=== PATIENT | female | born 1990 | race Caucasian/White ===

== ENCOUNTER 2021-04-16 09:31 | Inpatient (IN) ==
[2021-04-16] MEDS ORDERED: OXYTOCIN 30 UNITS/500 ML BAG IV PRN ×2 (11:10→21:02)
[2021-04-16] MEDS ORDERED: fentaNYL citrate 100 MCG/2 ML VIAL ONE (11:12)
[2021-04-16] MEDS ORDERED: ePHEDrine sulfate 50 MG/ML AMP ONE (11:12)
[2021-04-16] MEDS ORDERED: BUPIVACAINE 0.25% 30 ML VIAL ONE (11:12)
[2021-04-16] MEDS ORDERED: SODIUM CHLORIDE 0.9% INJ 10 ML VIAL ONE (11:12)
[2021-04-16] MEDS ORDERED: fentaNYL 2MCG/ML ROPIVACAINE 1.25MG/ML 100 ML BAG EPI ONE (11:13)
--- NOTE | 2021-04-16 11:20 | History & Physical Report ---
Date of Service April 16, 2021 Assessment & Plan (1) : Plan: 30 y/o at 38 3/7 wga presenting in labor BP elevated likely due to significant pain, will recheck and order labs if persistently elevated Fetus cat 1 Labor - good progression over 1hr, will admit and recheck after more comfortable w/ epidural GBS neg desires epidural History of Present Illness Chief Complaint: Labor Primary Care Provider: Brenton Mathew, III, [employer] 30 y/o at 38 3/7 wga presents in labor. Has had ctx on and off since yesterday, overnight became more regular q5-8 and currently q3-5 since 7am. +FM and bloody mucous discharge, no LOF. Initial check was 3cm, progressed to 4 after 1hr and admitted PNI: None Past health worker HX: G1 2019 SAB G2 current Menarche 14, q28-30d denies hx abnl pap, 08/2020 neg cotest denies hx STIs Allergies Allergy/AdvReac Type Severity Reaction Status Date / Time No Known Allergies Allergy Verified 04/15/21 08:55 Home Medications Medication Instructions Recorded Confirmed Type prenat.vits,sumeet,jwn-zdyf-famvk 1 tab PO DAILY 04/17/20 04/16/21 History Patient History Medical History History of chicken pox Surgical History S/P knee surgery S/P wisdom tooth extraction Family History Mother Hypertension Sarcoidosis Hypercholesterolemia Father Hypertension Diabetes type 2, uncontrolled Hypercholesterolemia Grandmother (Maternal) Breast cancer Denies family history of Ovarian cancer Prostate cancer Myocardial infarction Colorectal cancer Uterine cancer Social History Smoking Status: Never smoker Second Hand Exposure: No; Hx Alcohol Use: No Hx Substance Use: No Preferred Language: Egyptian Communication Ability: Effective Visual Impairment: No Limitations Hearing Ability: Normal Beliefs That Will Affect Care: None marital status: marital status details: Ceasar Burgos (30) [phone] Current Living Situation: Spouse Current Living Situation Comment: Lives with spouse, 1 dog. current occupational status: employed current occupation: [employer] Other Information That Helps Us Care for You: No Feels Safe at Home: Yes Safety Concerns: Feels Safe At This Time Childhood Exposure to Second-Hand Smoke: No Dental Care, Regularly: Yes Physical Activity Frequency: 5-6 Times per Week Seatbelt Use: always Sunscreen Use: Yes Assistive Devices: None Physical Exam Constitutional: WD/WN, vitals as above Respiratory: normal respiratory effort; no respiratory distress and no labored breathing Genitourinary: OB Exam Abdomen: + vertex and + estimated weight (7) Manual OB Exam: + cervical dilation 4 cm, + cervical effacement 90% and + station -1 OB Exam Monitor Tracing: + external FHT monitor used, + external uterine monitor used (q5) and + category I (135/mod/+accel/-decel) Results & Data ([facility]) Vital Signs (Past 12 Hours) Vital Signs Temp Pulse Resp BP 04/16/21 09:42 97.9 F 65 20 155/80 H 04/16/21 09:38 65 155/80 H Laboratory Results OB Labs: Blood Type O Positive 09/17/20 Antibody Screen NEGATIVE 09/17/20 Hemoglobin 12.6 g/dL (12.0-16.0) 02/05/21 Hematocrit 38.4 % (37-47) 02/05/21 Mean Corpuscular Volume 88.6 fL (80-100) 09/17/20 Platelet Count 222 K/uL (130-400) 09/17/20 Rubella IgG Antibody Immune (Immune) 09/17/20 Rapid Plasma Reagin Nonreactive (Nonreactive) 09/17/20 Hepatitis B Surface Antigen Neg (Neg) 09/17/20 HIV (1&2) Ab and P24 Ag, 4th Gener Neg (Neg) 09/17/20 Glucose 1 Hour 50 gm Load 170 mg/dl (70-130) H 02/05/21 Maternal Serum Alpha Fetoprotein 32.2 ng/mL 11/13/20 OB Optional Labs: Chlamydia trachomatis RNA NOT DETECTED (NOT DETECTED) 09/17/20 Neisseria gonorrhoeae RNA NOT DETECTED (NOT DETECTED) 09/17/20 Alpha Fetoprotein Triple Screen SEE NOTE 11/13/20 Labs Reviewed: cfdna neg cf/sma neg afp neg--akh gbs neg Diagnostic Findings post plac Coding Level of Care Code None Diagnoses Z34.90
[2021-04-16] MEDS: LACTATED RINGER'S 1,000 ML IV PRN ×3 (11:32→21:29)
--- NOTE | 2021-04-16 11:56 | Anesthesiology Consultation ---
Date of Service April 16, 2021 Assessment & Plan (1) Encounter for pre-operative examination: Chart Review Chart Review: Acceptable Risk for Labor Epidural Consults Requested none ASA ASA2 Proposed Anesthesia Anesthesia Type: Labor Epidural Risk / Benefits Reviewed With: PT / POA / Parent / Guardian, Accepts Plan and Informed Consent Obtained History Height/Weight Height: 5 ft 5 in Weight: 75.75 kg Allergies Allergy/AdvReac Type Severity Reaction Status Date / Time No Known Allergies Allergy Verified 04/15/21 08:55 Medications Home Medications Medication Instructions Recorded Confirmed Last Taken prenat.vits,sumeet,tyu-qhmv-epjbi 1 tab PO DAILY 04/17/20 04/16/21 Unknown Active Medications Generic Name Dose Route Start Last Admin Trade Name Freq PRN Reason Stop Dose Admin Lactated Ringer's 1,000 mls @ 125 mls/hr 04/16/21 11:10 04/16/21 11:32 Lr IV 04/18/21 11:09 999 mls/hr .Q8H PRN Administration L&D Protocol Protocol Past Medical History Medical History History of chicken pox Exercise / Class Metabolic Activity II 4-5 Yardwork/Stairs/Walk up hill Past Family History Family History Mother Hypertension Sarcoidosis Hypercholesterolemia Father Hypertension Diabetes type 2, uncontrolled Hypercholesterolemia Grandmother (Maternal) Breast cancer Denies family history of Ovarian cancer Prostate cancer Myocardial infarction Colorectal cancer Uterine cancer Past Surgical History Surgical History S/P knee surgery S/P wisdom tooth extraction Past Anesthesia History No Hx of Anesthesia Complications and No Family Hx of Anesthesia Complications History of PONV No Hx of PONV and No Hx of Motion Sickness Social History Smoking Status: Never smoker Hx Alcohol Use: No Hx Substance Use: No substance use type: does not use Physical Exam Vital Signs Last Vital Signs Temp 97.9 F 04/16/21 09:42 Pulse 59 L 04/16/21 11:49 Resp 20 04/16/21 09:42 BP 155/80 H 04/16/21 09:42 Pulse Ox 100 04/16/21 11:49 ENMT Mouth: no dentition abnormality Thyromental Distance: > or= 3.5 Finger Breadths Mallampati Class: II Neck normal visual inspection Respiratory normal respiratory effort Auscultation: lungs clear to auscultation bilaterally Cardiovascular Rate/Rhythm: regular rate and regular rhythm
[2021-04-16 12:11] LABS: Hematocrit (blood only) 41.5 % (37-47); Hemoglobin 14.2 g/dL (12.0-16.0); Mean Corpuscular Hemoglobin 30.5 pg (25-34); Mean Corpuscular Hgb Conc 34.2 g/dL (32-36); Mean Corpuscular Volume 89.2 fL (80-100); Mean Platelet Volume 12.5 fL (7.4-10.4); Platelet Count 211 K/uL (130-400); RDW Standard Deviation 41.8 fL (36.4-46.3); Red Blood Count 4.65 M/uL (4.2-5.4); White Blood Count 14.13 K/uL (4.8-10.8)
[2021-04-16] MEDS ORDERED: diphenhydrAMINE 50 MG/ML VIAL IV PRN (12:18)
[2021-04-16] MEDS ORDERED: ePHEDrine sulfate 50 MG/ML AMP IV PRN (12:18)
[2021-04-16] MEDS ORDERED: NALOXONE HCL 0.4 MG/1 ML VIAL/CARP IV PRN (12:18)
[2021-04-16] MEDS ORDERED: NALBUPHINE HCL INJ 10 MG/ML AMP IV PRN (12:18)
[2021-04-16] MEDS ORDERED: fentaNYL 2MCG/ML ROPIVACAINE 1.25MG/ML 100 ML BAG EPI PRN (12:18)
[2021-04-16] MEDS ORDERED: ONDANSETRON INJ 2 MG/ML 2 ML VIAL IV PRN (12:18)
[2021-04-16] MEDS ORDERED: NALOXONE HCL 1 MG in SODIUM CHLORIDE 0.9% 1000ML 1,000 ML IV PRN (12:18)
--- NOTE | 2021-04-16 13:39 | Labor Progress Brief Note ---
Date of Service April 16, 2021 Subjective Comfortable w/ epidural Assessment & Plan (1) : Plan: 30 y/o at 38 3/7 wga presenting in labor BP normalized Fetus cat 1 Labor - continuing to progress, appears to have srom/leaked with forebag noted so ruptured GBS neg Epidural in place Admission and Anticipated Discharge Date Admission Date: April 16, 2021 Physical Exam Genitourinary: Manual OB Exam: + cervical dilation 5 cm, + cervical effacement 90%, + station -1 and + amniotic fluid (suspect srom as appears to have fluid on perineum, forebag noted and ruptur) OB Exam Monitor Tracing: + external FHT monitor used, + external uterine monitor used (q5) and + category I (125-130/mod/+accel/-decel) Results & Data ([facility]) Vital Signs (Past 12 Hours) Vital Signs Temp Pulse Resp BP Pulse Ox 04/16/21 13:34 104 H 100 04/16/21 13:30 104 H 128/77 04/16/21 13:29 89 100 04/16/21 13:24 106 H 100 04/16/21 13:19 82 100 04/16/21 13:16 87 121/69 04/16/21 13:14 74 100 04/16/21 13:09 75 100 04/16/21 13:04 73 100 04/16/21 13:00 88 126/80 04/16/21 12:59 89 100 04/16/21 12:54 72 100 04/16/21 12:49 80 100 04/16/21 12:46 88 128/75 04/16/21 12:44 87 100 04/16/21 12:39 96 H 100 04/16/21 12:34 93 H 100 04/16/21 12:29 93 H 130/70 99 04/16/21 12:24 83 122/66 100 04/16/21 12:22 71 127/67 04/16/21 12:20 77 127/66 04/16/21 12:19 71 100 04/16/21 12:18 65 128/67 04/16/21 12:16 74 137/71 04/16/21 12:14 60 149/84 H 100 04/16/21 12:09 53 L 100 04/16/21 12:04 64 100 04/16/21 11:59 65 100 04/16/21 11:54 68 100 04/16/21 11:49 59 L 100 04/16/21 09:42 97.9 F 65 20 155/80 H 04/16/21 09:38 97.9 F 65 155/80 H Coding Level of Care Code None Diagnoses Z34.90
--- NOTE | 2021-04-16 16:51 | Labor Progress Brief Note ---
Date of Service April 16, 2021 Subjective Comfortable w/ epidural Assessment & Plan (1) : Plan: 30 y/o at 38 3/7 wga presenting in labor VSS Fetus cat 1 Labor - continuing to progress spontaneously GBS neg Epidural in place Admission and Anticipated Discharge Date Admission Date: April 16, 2021 Physical Exam Genitourinary: Manual OB Exam: + cervical dilation 5 cm, + cervical effacement 90% and + station 0 OB Exam Monitor Tracing: + external FHT monitor used, + external uterine monitor used (q4-5) and + category I (120/mod/+accel/-decel) Results & Data ([facility]) Vital Signs (Past 12 Hours) Vital Signs Temp Pulse Resp BP Pulse Ox 04/16/21 16:46 55 L 129/62 04/16/21 16:44 55 L 100 04/16/21 16:39 57 L 100 04/16/21 16:34 65 99 04/16/21 16:31 82 118/80 04/16/21 16:29 63 99 04/16/21 16:24 63 100 04/16/21 16:19 61 100 04/16/21 16:15 76 119/75 04/16/21 16:14 60 100 04/16/21 16:09 64 100 04/16/21 16:04 59 L 100 04/16/21 16:00 64 119/72 04/16/21 15:59 73 100 04/16/21 15:54 67 100 04/16/21 15:49 72 100 04/16/21 15:45 64 20 128/74 04/16/21 15:44 78 99 04/16/21 15:39 68 96 04/16/21 15:34 60 100 04/16/21 15:30 59 L 127/64 04/16/21 15:29 52 L 99 04/16/21 15:24 57 L 100 04/16/21 15:19 60 100 04/16/21 15:15 64 127/66 04/16/21 15:14 57 L 99 04/16/21 15:09 59 L 99 04/16/21 15:04 58 L 100 04/16/21 15:00 62 118/63 04/16/21 14:59 98.1 F 58 L 20 99 04/16/21 14:54 63 99 04/16/21 14:49 56 L 99 04/16/21 14:45 67 131/67 04/16/21 14:44 62 99 04/16/21 14:39 77 98 04/16/21 14:34 71 99 04/16/21 14:30 61 120/65 04/16/21 14:29 61 100 04/16/21 14:24 66 99 04/16/21 14:19 75 99 04/16/21 14:16 54 L 20 116/59 L 04/16/21 14:14 57 L 99 04/16/21 14:09 57 L 98 04/16/21 14:04 58 L 99 04/16/21 14:00 57 L 115/59 L 04/16/21 13:59 65 99 04/16/21 13:54 63 99 04/16/21 13:49 77 99 04/16/21 13:46 80 124/71 04/16/21 13:44 89 100 04/16/21 13:39 90 100 04/16/21 13:34 104 H 100 04/16/21 13:30 104 H 128/77 04/16/21 13:29 89 100 04/16/21 13:24 106 H 100 04/16/21 13:19 82 100 04/16/21 13:16 87 121/69 04/16/21 13:14 74 100 04/16/21 13:09 75 100 04/16/21 13:04 73 100 04/16/21 13:00 88 126/80 04/16/21 12:59 89 100 04/16/21 12:54 72 100 04/16/21 12:49 80 100 04/16/21 12:46 88 18 128/75 04/16/21 12:44 87 100 04/16/21 12:39 96 H 100 04/16/21 12:34 93 H 100 04/16/21 12:29 93 H 130/70 99 04/16/21 12:24 83 122/66 100 04/16/21 12:22 71 127/67 04/16/21 12:20 77 127/66 04/16/21 12:19 71 100 04/16/21 12:18 65 128/67 04/16/21 12:16 74 137/71 04/16/21 12:14 60 149/84 H 100 04/16/21 12:09 53 L 04/16/21 12:04 64 100 04/16/21 11:59 65 100 04/16/21 11:54 68 04/16/21 11:49 59 L 04/16/21 09:42 97.9 F 65 20 155/80 H 04/16/21 09:38 97.9 F 65 155/80 H Coding Level of Care Code None Diagnoses Z34.90
--- NOTE | 2021-04-17 01:09 | Delivery Summary ---
Vaginal Delivery Summary Date of Service April 17, 2021 Vaginal Delivery Summary and 2nd Degree LAC PREOPERATIVE DIAGNOSIS: 1. Single intrauterine at 38 4/7 wga 2. Labor 3. Spontaneous rupture of membranes POSTOPERATIVE DIAGNOSIS: 1. Single intrauterine at 38 4/7 wga 2. Labor 3. Spontaneous rupture of membranes 4. Delivered PROCEDURE: 1. Normal spontaneous vaginal delivery. SURGEON: Jennifer Kwong MD ANESTHESIA: Epidural. ESTIMATED BLOOD LOSS: 300 mL FLUIDS: Continuous LR. URINE OUTPUT: None. COMPLICATIONS: None. CONDITION: Stable. INDICATIONS: 30 y/o at 38 4/7 wga presented 1 day ago with contractions increasing in frequency and intensity. Initially was 3cm and progressed to 4cm over emanuel period and was admitted. She received an epidural for pain control and continue to progress spontaneously. She did appear to undergo srom with arom of a forebag and progressed to 9.5cm when contractions spaced out. Oxytocin was initiated and pt then progressed to complete and desired to push. FINDINGS: A viable male with Apgars of 9 and 9 at 1 and 5 minutes respectively. SPECIMEN: Cord blood OPERATIVE REPORT: The patient progressed to 10 cm, 100% effaced and +2 station, pushed over intact perineum with anesthesia to deliver a viable male , Apgars as above. Head of delivered in ERNESTO position. No nuchal cord was present. Body and shoulders were delivered without difficulty. was delivered to maternal abdomen and nursing staff. Delayed cord clamping was performed for 60 seconds. Cord was clamped and cut. Cord blood was obtained. Placenta delivered spontaneously intact with 3-vessel cord. IV oxytocin and fundal massage were given for excellent hemostasis. Vagina, cervix, perineum, and placenta were inspected. A second degree laceration was noted and repaired using 3-0 Vicryl in the usual fashion. Rectal exam was performed demonstrating no stitches in the rectum. Sponge and needle counts correct x2. No sponges were left behind. Mother and stable in immediate period. [facility] [place] Vaginal Delivery Charge Vaginal Delivery Codes: 10204 global code for the antepartum, delivery, and post- Delivery Type Details: and 2nd Degree LAC
[2021-04-17] MEDS ORDERED: OXYTOCIN 30 UNITS/500 ML BAG IV PRN (02:20)
[2021-04-17] MEDS ORDERED: BENZOCAINE 20% AER SPR 82.5 GM CAN EXT PRN (02:20)
[2021-04-17] MEDS ORDERED: HYDROCORTISONE ACETATE 25 MG SUPP PR PRN (02:20)
[2021-04-17] MEDS ORDERED: DIPHTHERIA/TETANUS/PERTUSSIS 0.5 ML SYR/VIAL IM ONE (02:20)
[2021-04-17] MEDS ORDERED: ACETAMINOPHEN 325 MG TAB PO PRN (02:20)
[2021-04-17] MEDS ORDERED: SUPERCREAM 0.870% 15 GM JAR EXT PRN (02:20)
--- NOTE | 2021-04-17 07:06 | Anesthesia Procedure Note ---
Date of Service April 17, 2021 Anesthesia Post Epidural Note Vital Signs Vital Signs: Temp Pulse Resp BP Pulse Ox 98.1 F 67 18 123/73 97 04/17/21 03:45 04/17/21 03:45 04/17/21 03:45 04/17/21 03:45 04/17/21 03:19 Pain Intensity Bilateral Lower Abdomen: Pain Intensity: 0 Notes Mental Status: alert / awake / arousable and participated in evaluation Nausea / Vomiting: adequately controlled Pain: adequately controlled Airway Patency, RR, SpO2: stable & adequate BP & HR: stable & adequate Hydration State: stable & adequate Neuraxial Anesthesia: was administered and sensory block is resolving Anesthetic Complications: no major complications apparent and Pt Satisfied with anesthetic care Epidural: Removed without complications and With tip intact
[2021-04-17] MEDS: DOCUSATE SODIUM 100 MG CAP PO SCH ×2 (08:49→20:27)
[2021-04-17] MEDS: IBUPROFEN 600 MG TAB PO PRN ×3 (08:49→19:48)
[2021-04-17] MEDS: PRENATAL VITAMIN 1 TAB PO SCH (08:49)
[2021-04-18] MEDS: IBUPROFEN 600 MG TAB PO PRN ×4 (00:06→15:28)
--- NOTE | 2021-04-18 05:26 | Obstetrical Progress Note ---
Date of Service <Maximus Burgosclara - Last Filed: 04/18/21 07:02> April 18, 2021 Assessment & Plan <Maximus Burgosclara - Last Filed: 04/18/21 07:02> (1) Encounter for care and examination after delivery: PPD1 - O+, GBS-, RI - Vitals within normal limits. - Encouraged . - Discussed discharge with patient. Patient wanting to go home today when baby is cleared by pediatrics. <Becky Marks MD - Last Filed: 04/18/21 07:21> (1) Encounter for care and examination after delivery: Subjective <Maximus Burgosclara - Last Filed: 04/18/21 07:02> Ambulation: ambulating normally Voiding: no voiding problems Passing Gas:: Yes Diet Tolerance:: regular diet Lochia:: Small Feeding Type:: breast feeding Current Pain Level(1-10): 0 Review of Systems Denies fever, chills, sweats Denies shortness of breath, difficulty breathing, chest pain, palpitations, chest pressure. Denies breast pain. Denies dysuria. Denies headache or changes in vision Physical Exam <Maximus Betancurbrock - Last Filed: 04/18/21 07:02> General: Alert, oriented. No acute distress. Cardiac: Regular rate and rhythm, no murmurs/rubs/gallops. Respiratory: Clear to auscultation bilaterally a/p, no wheezes/rales/rhonchi. No increased work of breathing. Symmetrical chest rise. No respiratory distress. Abdomen: Soft, nontender, nondistended. Bowel sounds present. Uterus: Uterine fundus firm, palpable [] cm below umbilicus. Lower Extremities: No lower extremity edema or swelling. No deep calf pain. Yisel's negative bilaterally Results & Data ([facility]) <Maximus BurgosDO clara - Last Filed: 04/18/21 07:02> Vital Signs (Past 12 Hours) Vital Signs Temp Pulse Resp BP Pulse Ox 04/18/21 00:05 36.5 C 52 L 16 125/76 98 04/17/21 19:40 36.9 C 75 16 118/63 97 <Becky Marks MD - Last Filed: 04/18/21 07:21> Co-Signing Physician Notes Resident Physician Supervision Note: I interviewed and examined the patient. Discussed with Dr. Perez and agree with findings and plan as documented in the note. Any exceptions or clarifi cations are listed here: [ ] Documented By: Becky Marks MD, FACOG Resident Activity Tracking <Maximus Perez, DO - Last Filed: 04/18/21 07:02> Resident Involvement: Resident Care Provided Care Provided: OB Delivery
[2021-04-18] MEDS: PRENATAL VITAMIN 1 TAB PO SCH (07:52)
[2021-04-18] MEDS: DOCUSATE SODIUM 100 MG CAP PO SCH (07:52)
[2021-04-18] MEDS ORDERED: bisacodyL 5 MG TABEC PO SCH (20:00)
[2021-04-19] MEDS ORDERED: bisacodyL 10 MG SUPP PR PRN (02:20)
== END 2021-04-18 17:20 | disposition home or self-care (01) | DRG 807 ==
LOC: OPB 09:31 → 4S1 09:33 → 4S2 04-17 03:43

== ENCOUNTER 2023-06-14 00:41 | Inpatient (IN) ==
[2023-06-14] MEDS ORDERED: LIDOCAINE 1% LOCAL 20 ML VIAL INFIL PRN (01:34)
[2023-06-14] MEDS ORDERED: OXYTOCIN 30 UNITS/500 ML BAG IV PRN ×3 (01:34→07:54)
--- NOTE | 2023-06-14 01:42 | History & Physical Report ---
Date of Service June 14, 2023 Assessment & Plan (1) Encounter for supervision of normal in multigravida: (2) SROM (spontaneous rupture of membranes): Plan 32 yo at 37 4/7 wga presents w/ SROM VSS, initial bp slightly elevated likely due to anxiety, will get labs Fetus cat 1 SROM - VB from earlier likely related to early cervical change as suspected and now sonya more regularly after srom, now 2cm. Will manage expectantly, augment prn GBS neg epidural prn History of Present Illness Chief Complaint: Bleeding Primary Care Provider: LINDY Alex 32 yo at 37 4/7 wga presents w/ bleeding. Was seen for triage due to vb that resolved. She went home and felt a "pop" sensation in her abdomen around midnight and had another gush of blood so presented as instructed. After the gush, started having more regular ctx. While here, she noted continued leaking and more contraction like pain. +FM PNI: Resolved low lying plac Past [employer] Hx: G1 2019 SAB G2 2020 at 38 wks G3 current no hx STIs Allergies Allergy/AdvReac Type Severity Reaction Status Date / Time No Known Allergies Allergy Verified 06/08/23 16:19 Home Medications Medication Instructions Recorded Confirmed Type prenat.vits,sumeet,lqd-djfs-rfiwt 1 tab PO DAILY 04/17/20 06/08/23 History Patient History Medical History Encounter for care and examination after delivery Encounter for pre-operative examination History of chicken pox Missed Small for dates affecting management of mother Surgical History S/P knee surgery S/P wisdom tooth extraction Family History Mother Hypertension Sarcoidosis Hypercholesterolemia Father Hypertension Diabetes type 2, uncontrolled Hypercholesterolemia Grandmother (Maternal) Breast cancer Denies family history of Ovarian cancer Prostate cancer Myocardial infarction Lung cancer Colorectal cancer Uterine cancer Stroke Social History Smoking Status: Never smoker Second Hand Exposure: No; Do You Dip or Chew Tobacco: No; Hx Alcohol Use: No Hx Substance Use: No Preferred Language: Citizen Of [place] Communication Ability: Effective Visual Impairment: No Limitations Hearing Ability: Normal Beliefs That Will Affect Care: None marital status: marital status details: Ceasar Burgos (32) [phone] Current Living Situation: Spouse Current Living Situation Comment: Lives with spouse,son, 1 dog. current occupational status: employed current occupation: [employer] How many Children do You have: 1 Feels Safe at Home: Yes Childhood Exposure to Second-Hand Smoke: No Diet: regular caffeine: Yes Dental Care, Regularly: Yes Physical Activity Frequency: 5-6 Times per Week Seatbelt Use: always Sunscreen Use: Yes Assistive Devices: None Physical Exam Genitourinary: OB Exam Abdomen: + vertex (confirmed by bsus) and + estimated weight (7) Manual OB Exam: + cervical dilation 2 cm, + cervical effacement 50%, + station -2 and + amniotic fluid (+nitrazine, pooling, ferning) OB Exam Monitor Tracing: + external FHT monitor used, + external uterine monitor used (q4) and + category I (130/mod/+accel/-decel) Results & Data Vital Signs (Past 12 Hours) Vital Signs Pulse BP 06/14/23 01:04 82 139/85 06/14/23 01:03 86 139/93 Laboratory Results OB Labs: Blood Type O Positive 11/24/22 Antibody Screen NEGATIVE 11/24/22 Hemoglobin 12.3 g/dl (12.0-16.0) 05/13/23 Hematocrit 35.6 % (37.0-47.0) L 05/13/23 Mean Corpuscular Volume 88.1 fL (80.0-100.0) 05/13/23 Platelet Count 180 K/uL (130-400) 05/13/23 Rubella IgG Antibody Immune (Immune) 11/24/22 Rapid Plasma Reagin Nonreactive (Nonreactive) 11/24/22 Hepatitis B Surface Antigen Neg (Neg) 09/17/20 Hepatitis B Surface Antigen. NON-REACTIVE (NON-REACTIVE) 11/24/22 Hepatitis C Antibody Neg (Neg) 10/17/19 Hepatitis C Antibody (EIA) NON-REACTIVE (NON-REACTIVE) 11/24/22 HIV (1&2) Ab and P24 Ag, 4th Gener Neg (Neg) 09/17/20 HIV (1&2) Ag and Ab Confirmation NON-REACTIVE (NON-REACTIVE) 11/24/22 Glucose 1 Hour 50 gm Load 106 mg/dl (70-130) 04/10/23 Maternal Serum Alpha Fetoprotein 32.5 ng/mL 01/20/23 OB Optional Labs: Chlamydia trachomatis RNA Not Detected (NotDetected) 11/24/22 Neisseria gonorrhoeae RNA Not Detected (NotDetected) 11/24/22 Thyroid Stimulating Hormone (TSH) 2.412 uIu/ml (0.300-4.500) 03/25/23 Alpha Fetoprotein Triple Screen SEE NOTE 01/20/23 Labs Reviewed: cfdna-low risk--mln carrier screen negative prior --mln neg afp - sln GBS neg Diagnostic Findings anterior plac Coding Level of Care Code None Diagnoses Encounter for supervision of normal in multigravida Z34.80 SROM (spontaneous rupture of membranes)
[2023-06-14 01:57] LABS: Hematocrit (blood only) 37.8 % (37.0-47.0); Mean Corpuscular Hemoglobin 30.2 pg (25.0-34.0); Mean Corpuscular Hgb Conc 34.4 g/dL (32.0-36.0); Mean Corpuscular Volume 87.7 fL (80.0-100.0); Mean Platelet Volume 11.5 fL (9.4-12.4); Platelet Count 180 K/uL (130-400); RDW Coefficient of Variation 12.2 % (11.5-14.5); RDW Standard Deviation 39.5 fL (36.4-46.3); Red Blood Count 4.31 M/uL (4.20-5.40); White Blood Count 10.43 K/ul (4.8-10.8)
[2023-06-14 02:09] LABS: Albumin Globulin Ratio 1.2 (0.9-2); Albumin Level 3.7 gm/dl (3.4-5.0); BUN Creatinine Ratio 22.9 (10-20); Bilirubin,Total 0.4 mg/dl (0.2-1.0); Calcium 8.8 mg/dl (8.6-10.3); Creatinine Clr Calc Pharmacy 170.5 ml/min; Est GFR (African American) 148.3 ml/min; Globulin 3.2 gm/dl (2.5-4.0); Potassium 3.7 mmol/L (3.5-5.1); Total Protein 6.9 gm/dl (6.0-8.3)
[2023-06-14] MEDS: LACTATED RINGER'S 1,000 ML IV PRN ×2 (03:16→05:28)
[2023-06-14] MEDS ORDERED: BUPIVACAINE 0.25% PF 30 ML VIAL ONE (03:19)
[2023-06-14] MEDS ORDERED: ePHEDrine sulfate 50 MG/ML AMP ONE (03:19)
[2023-06-14] MEDS ORDERED: fentaNYL citrate PF 100 MCG/2 ML VIAL ONE (03:19)
[2023-06-14] MEDS ORDERED: LIDOCAINE 2%/EPINEPHRINE 1:200,000 20 ML PF ONE (03:19)
[2023-06-14] MEDS ORDERED: SODIUM CHLORIDE 0.9% PF INJ 10 ML VIAL ONE (03:19)
[2023-06-14] MEDS ORDERED: fentaNYL 2MCG/ML ROPIVACAINE 1.25MG/ML 100 ML BAG EPI ONE (03:20)
[2023-06-14] MEDS ORDERED: LIDOCAINE 2%/EPINEPHRINE 1:200,000 20 ML PF EPI STA (03:28)
[2023-06-14] MEDS ORDERED: NALBUPHINE HCL INJ 10 MG/ML AMP IV PRN (03:28)
[2023-06-14] MEDS ORDERED: ROPIVACAINE 0.5% PF 5 MG/ML 20 ML VIAL EPI PRN (03:28)
[2023-06-14] MEDS ORDERED: BUPIVACAINE 0.25% PF 30 ML VIAL EPI PRN (03:28)
[2023-06-14] MEDS ORDERED: fentaNYL citrate PF 100 MCG/2 ML VIAL EPI PRN (03:28)
[2023-06-14] MEDS ORDERED: diphenhydrAMINE 50 MG/ML VIAL IV PRN (03:28)
[2023-06-14] MEDS ORDERED: ePHEDrine sulfate 50 MG/ML AMP IV PRN (03:28)
[2023-06-14] MEDS ORDERED: NALOXONE HCL 1 MG in SODIUM CHLORIDE 0.9% 1,000 ML IV PRN (03:28)
[2023-06-14] MEDS ORDERED: LIDOCAINE 2% MPF LOCAL 5 ML VIAL EPI PRN (03:28)
[2023-06-14] MEDS ORDERED: fentaNYL 2MCG/ML ROPIVACAINE 1.25MG/ML 100 ML BAG EPI PRN (03:28)
[2023-06-14] MEDS ORDERED: NALOXONE HCL 0.4 MG/1 ML VIAL/CARP IV PRN (03:28)
[2023-06-14] MEDS ORDERED: ONDANSETRON INJ 2 MG/ML 2 ML VIAL IV PRN (03:28)
[2023-06-14] MEDS ORDERED: SODIUM CHLORIDE 0.9% PF INJ 10 ML VIAL EPI STA (03:28)
[2023-06-14] MEDS ORDERED: SODIUM CHLORIDE 0.9% PF INJ 10 ML VIAL EPI PRN (03:28)
[2023-06-14] MEDS ORDERED: BUPIVACAINE 0.25% PF 30 ML VIAL EPI STA (03:28)
[2023-06-14] MEDS ORDERED: fentaNYL citrate PF 100 MCG/2 ML VIAL EPI STA (03:28)
--- NOTE | 2023-06-14 03:30 | Anesthesiology Consultation ---
Date of Service June 14, 2023 Assessment & Plan (1) Encounter for pre-operative examination: Chart Review Chart Review: Patient NOT seen in Pre Admission Testing and Acceptable Risk for Labor Epidural Consults Requested none History Height/Weight Height: 5 ft 5 in Weight: 78.018 kg Allergies Allergy/AdvReac Type Severity Reaction Status Date / Time No Known Allergies Allergy Verified 06/08/23 16:19 Medications Home Medications Medication Instructions Recorded Confirmed Last Taken prenat.vits,sumeet,gik-czml-acmwf 1 tab PO DAILY 04/17/20 06/08/23 Unknown Active Medications Generic Name Dose Route Start Last Admin Trade Name Freq PRN Reason Stop Dose Admin Lactated Ringer's 1,000 mls @ 125 mls/hr 06/14/23 01:34 06/14/23 03:16 Lr IV 06/16/23 01:33 999 mls/hr .Q8H PRN Administration L&D Protocol Protocol Past Medical History Medical History (Updated 06/14/23 @ 03:30 by Donell Henao MD) Encounter for care and examination after delivery Encounter for pre-operative examination History of chicken pox Missed Small for dates affecting management of mother Exercise / Class Metabolic Activity II 4-5 Yardwork/Stairs/Walk up hill Past Family History Family History Mother Hypertension Sarcoidosis Hypercholesterolemia Father Hypertension Diabetes type 2, uncontrolled Hypercholesterolemia Grandmother (Maternal) Breast cancer Denies family history of Ovarian cancer Prostate cancer Myocardial infarction Lung cancer Colorectal cancer Uterine cancer Stroke Past Surgical History Surgical History S/P knee surgery S/P wisdom tooth extraction Social History Smoking Status: Never smoker Do You Dip or Chew Tobacco: No Hx Alcohol Use: No Hx Substance Use: No substance use type: does not use Physical Exam Vital Signs Last Vital Signs Temp 36.7 C 06/14/23 01:13 Pulse 68 06/14/23 03:54 BP 128/80 06/14/23 03:53 Pulse Ox 96 06/14/23 03:54 Testing Laboratory Results 06/14/23 01:40 06/14/23 01:40
--- NOTE | 2023-06-14 07:34 | Delivery Summary ---
Vaginal Delivery Summary Date of Service June 14, 2023 Vaginal Delivery Summary and 2nd Degree LAC PREOPERATIVE DIAGNOSIS: 1. Single intrauterine at 37 4/7 2. SROM 3. Resolved low lying placenta POSTOPERATIVE DIAGNOSIS: 1. Single intrauterine at 37 4/7 2. SROM 3. Resolved low lying placenta 4. Delivered PROCEDURE: 1. Normal spontaneous vaginal delivery. SURGEON: Jennifer Kwong MD ANESTHESIA: Epidural. ESTIMATED BLOOD LOSS: 300 mL FLUIDS: Continuous LR. URINE OUTPUT: None. COMPLICATIONS: None. CONDITION: Stable. INDICATIONS: 32 yo at 37 4/7 wga presented w/ c/o vaginal bleeding after a pop sensation. On arrival, small bleeding noted but she was noted to be leaking fluid and srom confirmed. She was 2cm at the time. She was the same a few hours later and started on pitocin. She progressed to complete and desired to push. FINDINGS: A viable female , weight pending with Apgars of 8 and 9 at 1 and 5 minutes respectively. SPECIMEN: Cord blood OPERATIVE REPORT: The patient progressed to 10 cm, 100% effaced and +2 station, pushed over intact perineum with anesthesia to deliver a viable female infant, weight and Apgars as above. Head of delivered in PATSY position. No nuchal cord was present. Body and shoulders were delivered without difficulty. was delivered to maternal abdomen and nursing staff. Delayed cord clamping was performed for 60 seconds. Cord was clamped and cut. Cord blood was obtained. Placenta delivered spontaneously intact with 3-vessel cord. IV oxytocin and fundal massage were given for excellent hemostasis. Vagina, cervix, perineum, and placenta were inspected. A small second degree was noted and repaired with 3-0 vicryl, there was excellent hemostasis. Sponge and needle counts correct x2. No sponges were left behind. Mother and stable in immediate period. [facility] Vaginal Delivery Charge Vaginal Delivery Codes: 06043 global code for the antepartum, delivery, and post- Delivery Type Details: and 2nd Degree LAC
[2023-06-14] MEDS ORDERED: bisacodyL 10 MG SUPP PR PRN (07:54)
[2023-06-14] MEDS ORDERED: HYDROCORTISONE ACETATE 25 MG SUPP PR PRN (07:54)
[2023-06-14] MEDS ORDERED: DIPHTHERIA/TETANUS/PERTUSSIS Vaccine (Tdap, Age 7+yrs) 0.5mL SYR/VL IM ONE (07:54)
[2023-06-14] MEDS ORDERED: BENZOCAINE 20% SPRY 85 APPLN/85 GM CAN EXT PRN (07:54)
[2023-06-14] MEDS ORDERED: ACETAMINOPHEN 325 MG TAB PO PRN (07:54)
[2023-06-14] MEDS ORDERED: PRENATAL VITAMIN 1 TAB PO SCH (08:00)
[2023-06-14] MEDS: FERROUS SULFATE 325 MG TAB PO SCH (09:56)
[2023-06-14] MEDS: DOCUSATE SODIUM 100 MG CAP PO SCH ×2 (09:56→19:59)
--- NOTE | 2023-06-14 11:58 | Anesthesia Procedure Note ---
Date of Service June 14, 2023 Anesthesia Post Epidural Note Vital Signs Vital Signs: Temp Pulse Resp BP Pulse Ox 36.8 C 88 16 118/77 95 06/14/23 10:35 06/14/23 09:02 06/14/23 10:35 06/14/23 10:35 06/14/23 07:04 Notes Mental Status: alert / awake / arousable Nausea / Vomiting: adequately controlled Pain: adequately controlled Airway Patency, RR, SpO2: stable & adequate BP & HR: stable & adequate Hydration State: stable & adequate Neuraxial Anesthesia: was administered and sensory block is resolving Anesthetic Complications: no major complications apparent and Pt Satisfied with anesthetic care Epidural: Removed without complications and With tip intact
[2023-06-14] MEDS: IBUPROFEN 600 MG TAB PO PRN (19:59)
--- NOTE | 2023-06-14 20:16 | Obstetrical Progress Note ---
Date of Service <Efrem Stewart MD - Last Filed: 06/15/23 07:24> June 14, 2023 Assessment & Plan <Efrem Stewart MD - Last Filed: 06/15/23 07:24> (1) (spontaneous vaginal delivery): (2) SROM (spontaneous rupture of membranes): Plan 32 yo , day 2, status post of girl on 06/14 w/ 2nd deg LAC - Pt doing well clinically. Feels well today. Eating well, voiding well, ambulating well. Pain well controlled with PRN pain meds. - Routine care -- OOB, ambulation, diet progression as tolerated Vital Signs reviewed and WNL. (Tmax at 37.2 C) Hemoglobin Reviewed. 13.0 (06/14/23). Blood Type: O+, GBS-, Rubella Immune. Encourage ambulation, monitor and control pain with Motrin PRN, resume regular diet, monitor lochia. Breast feeding encouraged. After discharge will have 6 week follow-up with Dr. Kwong. Pt counselled on discharge instructions. <Jennifer Kwong MD - Last Filed: 06/15/23 07:26> (1) (spontaneous vaginal delivery): (2) SROM (spontaneous rupture of membranes): Subjective <Efrem Stewart MD - Last Filed: 06/15/23 07:24> Ambulation: ambulating normally Voiding: no voiding problems Passing Gas:: Yes Diet Tolerance:: regular diet Lochia:: Moderate Feeding Type:: breast feeding Current Pain Level(1-10): 4 (belly cramping, perineal pain) 32 yo, , day 1 s/p Respiratory: no cough or no dyspnea Cardiovascular: no chest pain or no palpitations Breast: + breast pain (little nipple pain) Gastrointestinal: no nausea, no vomiting, no constipation (no BM yet, but doesn't feel constipated) or no diarrhea/loose stools Musculoskeletal: no myalgia Physical Exam <Efrem Stewart MD - Last Filed: 06/15/23 07:24> Constitutional WD/WN, vitals as above Respiratory normal respiratory effort, lungs clear to auscultation Cardiovascular RRR, no murmur, no edema Gastrointestinal (Abdomen) normal bowel sounds, soft, nontender, no hepatosplenomegaly Musculoskeletal Extremities: extremities normal to inspection (no calf pain tenderness) Results & Data <Efrem Stewart MD - Last Filed: 06/15/23 07:24> Vital Signs (Past 12 Hours) Vital Signs Temp Pulse Resp BP BP 06/14/23 12:58 37 C 16 118/75 06/14/23 10:35 36.8 C 16 118/77 06/14/23 10:00 18 06/14/23 08:32 18 06/14/23 09:02 18 06/14/23 09:02 88 113/61 06/14/23 08:47 83 105/59 L 06/14/23 08:34 77 101/61 <Jennifer Kwong MD - Last Filed: 06/15/23 07:26> Co-Signing Physician Notes Resident Physician Supervision Note: I interviewed and examined the patient. Discussed with Dr. Stewart and agree with findings and plan as documented in the note. Any exceptions or clarifications are listed here: PP1 s/p , doing well. VSS, exam benign and wnl. Desires dc home today, ok to do so Documented By: Jennifer Kwong MD
[2023-06-15] MEDS: IBUPROFEN 600 MG TAB PO PRN ×2 (01:06→05:39)
[2023-06-15] MEDS: FERROUS SULFATE 325 MG TAB PO SCH (08:12)
[2023-06-15] MEDS: DOCUSATE SODIUM 100 MG CAP PO SCH (08:12)
[2023-06-15] MEDS ORDERED: bisacodyL 5 MG TABEC PO SCH (20:00)
== END 2023-06-15 14:15 | disposition home or self-care (01) | DRG 807 ==
LOC: OPB 00:41 → 4S1 00:43 → 4E2 10:10